=== PATIENT | female | born 1945 | race Caucasian/White ===

== ENCOUNTER 2020-11-11 10:31 | Emergency (ER) | payer MEDICARE ==
[~2020-11-11] VITALS: Ht 170.2 cm; Wt 72.6 kg
== END 2020-11-11 12:10 ==
LOC: ER 10:45
DX: R20.2 Paresthesia of skin (principal); I73.9 Peripheral vascular disease, unspecified; G83.89 Other specified paralytic syndromes
CPT/HCPCS: 93925; 99283

== ENCOUNTER 2020-11-16 16:59 | Inpatient (IN) | payer MEDICARE, OTHER ==
[~2020-11-16] VITALS: Ht 170.2 cm; Wt 72.6 kg
[2020-11-16 18:25] LABS: BASOPHILS # (AUTO) 0.1 (0.0-0.1); BASOPHILS % 0.4 % (0.0-1.0); EOSINOPHILS % 0.1 % (0.0-6.0); HEMATOCRIT 37.7 % (34.2-44.1); HEMOGLOBIN 12.2 g/dL (12.0-16.0); LYMPHOCYTES # (AUTO) 0.9 (1.0-3.2); LYMPHOCYTES % 3.5 % (18.0-39.1); MEAN CORPUSCULAR HEMOGLOBIN 26.1 pg (28-32); MEAN CORPUSCULAR HGB CONC 32.4 g/dL (31-35); MEAN CORPUSCULAR VOLUME 80.7 fL (81-99); MONOCYTES # (AUTO) 1.1 (0.2-0.8); MONOCYTES % 4.6 % (4.4-11.3); NEUTROPHILS # (AUTO) 22.2 (2.1-6.9); NEUTROPHILS % 90.1 % (38.7-80.0); PLATELET COUNT 396 x10e3/uL (140-360); RED BLOOD COUNT 4.67 x10e6/uL (3.6-5.1)
[2020-11-16 18:48] LABS: BAND NEUTROPHILS % (MANUAL) 5 %; LYMPHOCYTES % (MANUAL) 4 % (19-48); METAMYELOCYTES % (MANUAL) 1 % (0-0); MONOCYTES % (MANUAL) 6 % (3.4-9.0); MYELOCYTES % (MANUAL) 1 % (0-0); NEUTROPHILS % (MANUAL) 83 % (40-74)
[2020-11-16 18:49] LABS: SMUDGE CELLS FEW
[2020-11-16 18:50] LABS: PLATELET ESTIMATE SLIGHTLY INCREASED; RBC MORPHOLOGY COMMENT NORMAL
[2020-11-16] MEDS ORDERED: CEFTRIAXONE 1 GM in SODIUM CHLORIDE 0.9% 50ML 50 ML IV ONE (19:00)
[2020-11-16 19:19] LABS: CLARITY,URINE CLOUDY (CLEAR); COLOR,URINE BROWN (YELLOW); KETONES,URINE NEGATIVE (NEGATIVE); LEUKOCYTE ESTERASE ,URINE TRACE (NEGATIVE); NITRITE,URINE NEGATIVE (NEGATIVE); PROTEIN,URINE DIPSTICK >=300 (NEGATIVE); URINE UROBILINOGEN 0.2 mg/dL (0.2 - 1)
[2020-11-16 19:25] LABS: ANION GAP 21.9 mmol/L (8-16); CALCIUM 9.4 mg/dL (8.4-10.2); CREATININE, SERUM 1.86 mg/dL (0.57-1.11)
[2020-11-16 19:26] LABS: POTASSIUM 5.9 mmol/L (3.5-5.1)
[2020-11-16 19:31] LABS: BACTERIA,URINE MANY /HPF
[2020-11-16 19:38] LABS: ALBUMIN 1.8 g/dL (3.5-5.0); ALBUMIN/GLOBULIN RATIO 0.3 (0.8-2.0)
[2020-11-16 20:38] LABS: INR 1.21; PROTHROMBIN TIME 15.6 seconds (11.9-14.5)
[2020-11-16] MEDS ORDERED: SODIUM CHLORIDE 0.9% 1000ML 1,000 ML IV STA (22:02)
[2020-11-17] VITALS (10 sets, daily range): BP systolic 97–124; BP diastolic 55–73
[2020-11-17] MEDS ORDERED: SODIUM CHLORIDE 0.9% 1000ML 1,000 ML IV SCH (00:30)
[2020-11-17] MEDS ORDERED: SOD POLYSTYRENE SULFONATE SUSP 15 GM/60 ML BTL PO ONE (00:45)
[2020-11-17] MEDS ORDERED: ACETAMINOPHEN 325 MG TAB PO PRN (01:15)
[2020-11-17] MEDS ORDERED: HYDRALAZINE HCL 20 MG/ML VIAL IV PRN (01:15)
[2020-11-17] MEDS ORDERED: Vancomycin IV 1 GM in SODIUM CHLORIDE 0.9% 250ML 250 ML IV SCH ×2 (01:15→01:45)
[2020-11-17] MEDS ORDERED: MELATONIN 5 MG TABLET PO PRN (01:15)
[2020-11-17] MEDS ORDERED: LIDOCAINE 4% PATCH TP PRN (01:15)
[2020-11-17] MEDS ORDERED: POTASSIUM CHLORIDE 20 MEQ TAB CR PO PRN (01:15)
[2020-11-17] MEDS ORDERED: ONDANSETRON HCL INJ 2MG/ML 2ML 2 MG/ML VIAL IV PRN (01:15)
[2020-11-17] MEDS ORDERED: ALBUTEROL/IPRATROPIUM 3 ML NEB NEB PRN (01:15)
[2020-11-17] MEDS ORDERED: DOCUSATE SODIUM 100 MG CAP PO PRN (01:15)
[2020-11-17] MEDS ORDERED: BENZONATATE 100 MG CAP PO PRN (01:15)
[2020-11-17] MEDS ORDERED: DEXTROSE 50% SYRINGE 50 ML IV PRN (01:15)
[2020-11-17] MEDS ORDERED: DIPHENHYDRAMINE HCL 25 MG CAP PO PRN (01:15)
[2020-11-17] MEDS ORDERED: Vancomycin IV 1 GM in SODIUM CHLORIDE 0.9% 250ML 250 ML IV ONE (01:45)
[2020-11-17] MEDS: MEROPENEM 500 MG in SODIUM CHLORIDE 0.9% 50ML 50 ML IV SCH ×3 (02:58→14:15)
[2020-11-17] MEDS ORDERED: MAGNESIUM OXID400 MG PO (04:09)
[2020-11-17] MEDS ORDERED: LEVOTHYROXINE100 MC1 PO (04:09)
[2020-11-17] MEDS: PANTOPRAZOLE SOD 40 MG TABEC PO SCH (08:59)
[2020-11-17] MEDS: MIDODRINE 2.5 MG TAB PO SCH ×2 (08:59→12:33)
[2020-11-17] MEDS ORDERED: FUROSEMIDE INJ 10 MG/ML 4 ML VIAL IV ONE (12:30)
[2020-11-17 13:07] LABS: ALBUMIN 1.6 g/dL (3.5-5.0); ALBUMIN/GLOBULIN RATIO 0.3 (0.8-2.0); ANION GAP 17.7 mmol/L (8-16); CALCIUM 8.6 mg/dL (8.4-10.2); CREATININE, SERUM 1.62 mg/dL (0.57-1.11); POTASSIUM 4.7 mmol/L (3.5-5.1)
[2020-11-17] MEDS ORDERED: SODIUM BICARBONATE 650 MG TAB PO SCH (13:30)
[2020-11-17] MEDS ORDERED: GLYCERIN ADULT 3 GM SUPP PR PRN (13:30)
[2020-11-17] MEDS ORDERED: GLYCERIN ADULT 3 GM SUPP PR NR (13:30)
[2020-11-17 14:55] LABS: BASOPHILS # (AUTO) 0.1 (0.0-0.1); BASOPHILS % 0.3 % (0.0-1.0); EOSINOPHILS # (AUTO) 0.1 (0.0-0.4); EOSINOPHILS % 0.3 % (0.0-6.0); HEMATOCRIT 38.5 % (34.2-44.1); HEMOGLOBIN 12.1 g/dL (12.0-16.0); LYMPHOCYTES # (AUTO) 0.7 (1.0-3.2); LYMPHOCYTES % 4.1 % (18.0-39.1); MEAN CORPUSCULAR HEMOGLOBIN 26.2 pg (28-32); MEAN CORPUSCULAR HGB CONC 31.4 g/dL (31-35); MEAN CORPUSCULAR VOLUME 83.5 fL (81-99); MONOCYTES # (AUTO) 1.2 (0.2-0.8); MONOCYTES % 6.7 % (4.4-11.3); NEUTROPHILS # (AUTO) 15.3 (2.1-6.9); NEUTROPHILS % 87.3 % (38.7-80.0); PLATELET COUNT 360 x10e3/uL (140-360); RED BLOOD COUNT 4.61 x10e6/uL (3.6-5.1); RED CELL DISTRIBUTION WIDTH 15.9 % (11.7-14.4)
[2020-11-17] MEDS: SODIUM CHLORIDE 0.9% 500ML 500 ML IV SCH ×2 (15:11→20:10)
[2020-11-17] MEDS: MIDODRINE HCL 5 MG TABLET PO SCH (17:28)
[2020-11-17] MEDS: ENOXAPARIN SOD INJ 40 MG/0.4 ML SYR SC SCH (17:28)
[2020-11-18] VITALS (9 sets, daily range): BP systolic 79–110; BP diastolic 40–64
[2020-11-18] MEDS ORDERED: Vancomycin IV 750 MG in SODIUM CHLORIDE 0.9% 100 ML 150 ML IV SCH (01:45)
[2020-11-18] MEDS ORDERED: Vancomycin IV 1 GM in SODIUM CHLORIDE 0.9% 250ML 250 ML IV ONE (09:00)
[2020-11-18] MEDS ORDERED: MEROPENEM 500 MG in SODIUM CHLORIDE 0.9% 50ML 50 ML IV SCH (09:00)
[2020-11-18] MEDS: PANTOPRAZOLE SOD 40 MG TABEC PO SCH (09:31)
[2020-11-18] MEDS: MIDODRINE HCL 5 MG TABLET PO SCH ×3 (09:31→18:50)
[2020-11-18] MEDS ORDERED: SODIUM CHLORIDE 1 GM TAB PO SCH (15:00)
[2020-11-18 15:32] LABS: BASOPHILS # (AUTO) 0.1 (0.0-0.1); BASOPHILS % 0.4 % (0.0-1.0); EOSINOPHILS # (AUTO) 0.1 (0.0-0.4); EOSINOPHILS % 0.3 % (0.0-6.0); HEMATOCRIT 31.9 % (34.2-44.1); HEMOGLOBIN 10.3 g/dL (12.0-16.0); LYMPHOCYTES # (AUTO) 0.7 (1.0-3.2); LYMPHOCYTES % 4.3 % (18.0-39.1); MEAN CORPUSCULAR HEMOGLOBIN 26.1 pg (28-32); MEAN CORPUSCULAR HGB CONC 32.3 g/dL (31-35); MEAN CORPUSCULAR VOLUME 80.8 fL (81-99); MONOCYTES # (AUTO) 0.5 (0.2-0.8); MONOCYTES % 3.3 % (4.4-11.3); NEUTROPHILS # (AUTO) 13.8 (2.1-6.9); NEUTROPHILS % 90.3 % (38.7-80.0); PLATELET COUNT 384 x10e3/uL (140-360); RED BLOOD COUNT 3.95 x10e6/uL (3.6-5.1); RED CELL DISTRIBUTION WIDTH 15.9 % (11.7-14.4)
[2020-11-18] MEDS: MEROPENEM 500 MG in SODIUM CHLORIDE 0.9% 50ML 50 ML IV SCH (15:34)
[2020-11-18 15:50] LABS: ALBUMIN 1.5 g/dL (3.5-5.0); ALBUMIN/GLOBULIN RATIO 0.3 (0.8-2.0); ANION GAP 16.9 mmol/L (8-16); BILIRUBIN,DIRECT 0.2 mg/dL (0.0-0.5); CALCIUM 8.2 mg/dL (8.4-10.2); CREATININE, SERUM 2.19 mg/dL (0.57-1.11); MAGNESIUM 2.6 MG/DL (1.3-2.1); POTASSIUM 3.9 mmol/L (3.5-5.1)
[2020-11-18] MEDS ORDERED: SODIUM CHLORIDE 0.9% 1000ML 1,000 ML IV SCH (16:30)
[2020-11-18 16:50] LABS: EOSINOPHILS % (MANUAL) 1 % (0-7); LYMPHOCYTES % (MANUAL) 3 % (19-48); MONOCYTES % (MANUAL) 11 % (3.4-9.0); NEUTROPHILS % (MANUAL) 84 % (40-74); PLATELET ESTIMATE ADEQUATE; PLATELET MORPHOLOGY COMMENT FEW EDTA CLUMPING; RBC MORPHOLOGY COMMENT NORMAL
[2020-11-18] MEDS: ENOXAPARIN SOD INJ 40 MG/0.4 ML SYR SC SCH (18:51)
[2020-11-18] MEDS: SODIUM BICARBONATE 650 MG TAB PO SCH (18:51)
[2020-11-18] MEDS: HYDROCODONE/APAP 5MG-325MG TAB PO PRN (19:33)
[2020-11-18] MEDS ORDERED: CYCLOBENZAPRINE10 MG PO (21:30)
[2020-11-18] MEDS ORDERED: MIRTAZAPINE15 MG PO (21:30)
[2020-11-18] MEDS ORDERED: NEURONTIN300 MG PO (21:30)
[2020-11-18] MEDS ORDERED: SYNTHROID100 MCG PO (21:30)
[2020-11-18] MEDS ORDERED: PANTOPRAZOLE SO40 MG PO (21:31)
[2020-11-18] MEDS ORDERED: MIRTAZAPINE7.5 MG PO (21:40)
[2020-11-18] MEDS ORDERED: DULCOLAX SUPP10 MG RC (23:03)
[2020-11-18] MEDS ORDERED: ZOLOFT50 MG PO (23:03)
[2020-11-18] MEDS ORDERED: POLYETHYLENE GL17 GM PO (23:03)
[2020-11-18] MEDS ORDERED: CALCIUM 600 +1 EAC4 PO (23:03)
[2020-11-18] MEDS ORDERED: vitamin d3 PO (23:03)
[2020-11-18] MEDS ORDERED: PROBIOTIC & AC1 EACH PO (23:03)
[2020-11-18] MEDS ORDERED: ENULOSE10 GM/15 M PO (23:03)
[2020-11-18] MEDS ORDERED: MULTIVITAMINS1 EAC6 PO (23:03)
[2020-11-18] MEDS ORDERED: MAGNESIUM OXID400 MG PO (23:03)
[2020-11-18] MEDS ORDERED: TYLENOL325 MG PO (23:03)
[2020-11-18] MEDS ORDERED: FEROSUL325 MG PO (23:03)
[2020-11-18] MEDS ORDERED: COLACE100 MG PO (23:03)
[2020-11-19] VITALS (7 sets, daily range): BP systolic 86–109; BP diastolic 54–60
[2020-11-19 01:01] LABS: ANION GAP 18.9 mmol/L (8-16); CALCIUM 8.2 mg/dL (8.4-10.2); CREATININE, SERUM 2.25 mg/dL (0.57-1.11); POTASSIUM 3.9 mmol/L (3.5-5.1)
[2020-11-19 05:55] LABS: BASOPHILS # (AUTO) 0.2 (0.0-0.1); BASOPHILS % 0.9 % (0.0-1.0); EOSINOPHILS # (AUTO) 0.1 (0.0-0.4); EOSINOPHILS % 0.3 % (0.0-6.0); HEMATOCRIT 31.5 % (34.2-44.1); HEMOGLOBIN 10.4 g/dL (12.0-16.0); LYMPHOCYTES # (AUTO) 0.6 (1.0-3.2); LYMPHOCYTES % 3.2 % (18.0-39.1); MEAN CORPUSCULAR HEMOGLOBIN 26.5 pg (28-32); MEAN CORPUSCULAR VOLUME 80.4 fL (81-99); MONOCYTES # (AUTO) 0.8 (0.2-0.8); MONOCYTES % 4.4 % (4.4-11.3); NEUTROPHILS # (AUTO) 15.8 (2.1-6.9); NEUTROPHILS % 89.9 % (38.7-80.0); PLATELET COUNT 377 x10e3/uL (140-360); RED BLOOD COUNT 3.92 x10e6/uL (3.6-5.1); RED CELL DISTRIBUTION WIDTH 16.3 % (11.7-14.4)
[2020-11-19 07:13] LABS: CALCIUM 8.4 mg/dL (8.4-10.2); CREATININE, SERUM 2.34 mg/dL (0.57-1.11)
[2020-11-19] MEDS: SODIUM BICARBONATE 650 MG TAB PO SCH (08:28)
[2020-11-19] MEDS: MEROPENEM 500 MG in SODIUM CHLORIDE 0.9% 50ML 50 ML IV SCH (08:28)
[2020-11-19] MEDS: PANTOPRAZOLE SOD 40 MG TABEC PO SCH (08:28)
[2020-11-19] MEDS: MIDODRINE HCL 5 MG TABLET PO SCH ×2 (08:28→12:36)
[2020-11-19] MEDS ORDERED: COLLAGENASE 5 GM TUBE TOP SCH (09:00)
[2020-11-19] MEDS ORDERED: LORAZEPAM INJ 2 MG/ML VIAL IV PRN (13:30)
[2020-11-19] MEDS: HYDROCODONE/APAP 5MG-325MG TAB PO PRN (14:00)
[2020-11-19] MEDS ORDERED: SCOPOLAMINE 1.5 MG PATCH TOP ONE (15:00)
[2020-11-19] MEDS: MORPHINE SULFATE INJ 2 MG/ML SYR IV PRN (22:00)
[2020-11-20 00:20] VITALS: BP 81/52
[2020-11-20 04:38] VITALS: BP 83/46
[2020-11-20] MEDS: MORPHINE SULFATE INJ 2 MG/ML SYR IV PRN ×3 (07:39→18:21)
[2020-11-20 08:02] VITALS: BP 82/51
[2020-11-20 12:10] VITALS: BP 84/49
[2020-11-20 13:09] VITALS: BP 82/51
[2020-11-20 17:14] VITALS: BP 82/46
== END 2020-11-20 18:42 | disposition home or self-care (01) | DRG 871 ==
LOC: ER 18:16 → ERHOLD 19:29 → MED/SURG3 11-17 01:41
PROVIDERS: ADMIT Internal Medicine; ATTEND Internal Medicine
PROC: 02HV33Z Insertion of Infusion Device into Superior Vena Cava, Percutaneous Approach (ICD-10-PCS; principal; 2020-11-18)
DX: A41.9 Sepsis, unspecified organism (principal); R65.21 Severe sepsis with septic shock; J96.20 Acute and chronic respiratory failure, unspecified whether with hypoxia or hypercapnia; N17.0 Acute kidney failure with tubular necrosis; E87.1 Hypo-osmolality and hyponatremia; N39.0 Urinary tract infection, site not specified; E87.2 Acidosis; I50.32 Chronic diastolic (congestive) heart failure; J84.9 Interstitial pulmonary disease, unspecified; G35 Multiple sclerosis; Z74.01 Bed confinement status; G83.89 Other specified paralytic syndromes; E86.0 Dehydration; K59.09 Other constipation; E87.5 Hyperkalemia; L89.150 Pressure ulcer of sacral region, unstageable; Z66 Do not resuscitate; I11.0 Hypertensive heart disease with heart failure; D45 Polycythemia vera; I48.91 Unspecified atrial fibrillation; Z79.01 Long term (current) use of anticoagulants; J43.9 Emphysema, unspecified
CPT/HCPCS: 36415; 36556; 71045; 74018; 74470; 76700; 76937; 77001; 80048; 80053; 81001; 82248; 83036; 83605; 83735; 84100; 84295; 84484; 85025; 85610; 87040; 87086; 87186; 93005; 96360; 97139; 99284; C1769; J0696; J1650; J1940; J2185; J2270; J3370; J7030; J7040; J7050; U0002